=== PATIENT | female | born 1985 | race Caucasian/White ===

== ENCOUNTER 2016-09-13 10:07 | Observation (INO) | payer MEDICAID ==
[~2016-09-13] VITALS: Ht 160 cm; Wt 104.3 kg
[2016-09-13] MEDS ORDERED: PREN-88 PO (11:35)
[2016-09-13] MEDS ORDERED: LEVO125T PO (11:38)
== END 2016-09-13 12:20 | disposition home or self-care (01) ==
LOC: L&D 10:07
PROVIDERS: ADMIT Specialist; ATTEND Specialist
DX: O36.8130 Decreased fetal movements, third trimester, not applicable or unspecified (principal); Z3A.28 28 weeks gestation of pregnancy
CPT/HCPCS: 76815; 76818; 99281; G0378

== ENCOUNTER 2016-11-18 11:00 | Inpatient (IN) | payer MEDICAID ==
[~2016-11-18] VITALS: Ht 160 cm; Wt 106.1 kg
[~2016-11-18 11:00] MED LIST: LEVO125T PO; PREN-88 PO
[2016-11-18] MEDS ORDERED: LACTATED RINGERS 1,000 ML IV SCH (11:52)
[2016-11-18] MEDS ORDERED: CARBOPROST TROMETHAMINE 250 MCG/ML AMPUL IM PRN (12:00)
[2016-11-18] MEDS ORDERED: BUTORPHANOL TARTRATE 2 MG/ML VIAL IV PRN (12:00)
[2016-11-18] MEDS ORDERED: METHYLERGONOVINE MALEATE 0.2 MG/ML IM PRN (12:00)
[2016-11-18] MEDS ORDERED: NALOXONE HCL 0.4 MG/ML 1ML VIAL IM PRN (12:00)
[2016-11-18] MEDS ORDERED: LIDOCAINE HCL 1% 20ML VIAL (Pyxis) INJ INFIL SCH (12:00)
[2016-11-18 12:38] LABS: BASOPHILS % 0.1 % (0.0-2.0); EOSINOPHILS % 0.6 % (0.0-5.0); HEMOGLOBIN. 12.8 g/dL (12.0-16.0); LYMPHOCYTES % 15.7 % (20.0-50.0); MEAN CORPUSCULAR HEMOGLOBIN 31.5 pg (28.0-32.0); MEAN CORPUSCULAR VOLUME 91.1 fL (81.0-99.0); MEAN PLATELET VOLUME 9.5 fl (7.4-10.4); MONOCYTES % 4.9 % (2.0-8.0); NEUTROPHILS % 78.7 % (40.0-76.0); PLATELET 223 x1000/uL (130-400); RED BLOOD CELL COUNT 4.07 mill/uL (4.2-5.4); RED CELL DISTRIBUTION WIDTH 13.8 % (11.6-14.6)
[2016-11-18 12:45] LABS: CLARITY URINE CLOUDY (CLEAR); COLOR URINE YELLOW (YELLOW); GLUCOSE URINE NEGATIVE (NEGATIVE); KETONES URINE NEGATIVE (NEGATIVE); LEUKOCYTE ESTERASE URINE 1+ (NEGATIVE); NITRITE URINE NEGATIVE (NEGATIVE); OCCULT BLOOD URINE NEGATIVE (NEGATIVE); PH URINE 7.5 (4.5-8.0); PROTEIN URINE NEGATIVE (NEGATIVE); SPECIFIC GRAVITY URINE 1.007 (1.005-1.030); UROBILINOGEN URINE 0.2 E.U./dL (0.2-1.0)
[2016-11-18 12:50] LABS: INR 0.9; PARTIAL THROMBOPLASTIN TIME 26.5 sec (23.4-31.0); PROTHROMBIN TIME 9.4 sec (9.4-11.6)
[2016-11-18] MEDS: DEXT 5%/LR + PITOCIN 20UNITS/L 1,000 ML IV SCH (13:19)
[2016-11-18 13:21] LABS: *AMPHETAMINES SCREEN URINE NEGATIVE (NEGATIVE); *BARBITURATES SCREEN URINE NEGATIVE (NEGATIVE); *BENZODIAZEPINES SCREEN URINE NEGATIVE (NEGATIVE); *COCAINE SCREEN URINE NEGATIVE (NEGATIVE); CANNABINOID URINE SCREEN NEGATIVE (NEGATIVE); METHADONE URINE SCREEN NEGATIVE (NEGATIVE); OPIATES URINE SCREEN NEGATIVE (NEGATIVE); PHENCYCLIDINE URINE SCREEN NEGATIVE (NEGATIVE)
[2016-11-18 13:28] LABS: HEPATITIS B SURFACE ANTIGEN NEGATIVE
[2016-11-18 13:29] LABS: RUBELLA IGG > 500.0 IU/mL (4.99-10)
[2016-11-18] MEDS ORDERED: AMPICILLIN 2,000 MG in SODIUM CHLORIDE 0.9% 100 ML IV SCH (13:45)
[2016-11-18] MEDS: LACTATED RINGERS 1,000 ML IV SCH (18:31)
[2016-11-18] MEDS ORDERED: AMPICILLIN 1,000 MG in SODIUM CHLORIDE 0.9% 50 ML IV SCH (20:00)
[2016-11-18] MEDS ORDERED: FENTANYL CITRATE/PF 50MCG/ML 2ML VIAL ONE (21:50)
[2016-11-18] MEDS ORDERED: BUPIVACAINE HCL/PF 0.25% (2.5MG/ML) 10ML ONE (21:51)
[2016-11-18] MEDS ORDERED: BUPIVACAINE HCL/NS/PF EPIDURAL 100 ML EP ONE (21:51)
[2016-11-18] MEDS ORDERED: ONDANSETRON HCL 4MG/2ML VIAL IV PRN (22:30)
[2016-11-18] MEDS ORDERED: DIPHENHYDRAMINE 50MG/ML VIAL IM PRN (22:30)
[2016-11-18] MEDS ORDERED: BUPIVACAINE HCL/NS/PF EPIDURAL 100 ML EP SCH (22:30)
[2016-11-19] MEDS ORDERED: FENTANYL CITRATE/PF 50MCG/ML 2ML VIAL ONE ×3 (05:26→13:13)
[2016-11-19] MEDS ORDERED: BUPIVACAINE HCL/PF 0.25% (2.5MG/ML) 10ML ONE (05:27)
[2016-11-19] MEDS ORDERED: BUPIVACAINE HCL/NS/PF EPIDURAL 100 ML EP ONE (05:27)
[2016-11-19] MEDS: LACTATED RINGERS 1,000 ML IV SCH (06:04)
[2016-11-19] MEDS ORDERED: MORPHINE SULFATE/PF 1MG/ML 10ML AMP ONE (12:19)
[2016-11-19] MEDS ORDERED: MIDAZOLAM HCL 2 MG/2 ML VIAL ONE ×2 (12:20→13:14)
[2016-11-19] MEDS ORDERED: SODIUM CHLORIDE 0.9% 10ML VIAL ONE (12:26)
[2016-11-19] MEDS ORDERED: DEXAMETHASONE 4MG/ML 1ML VIAL ONE (12:26)
[2016-11-19] MEDS ORDERED: EPHEDRINE SULFATE 50MG/ML VIAL ONE (12:26)
[2016-11-19] MEDS ORDERED: CEFAZOLIN SODIUM 1000MG/VIAL ONE (12:26)
[2016-11-19] MEDS ORDERED: PHENYLEPHRINE HCL 10 MG/ML 1ML (IV VIAL) IV ONE (12:26)
[2016-11-19] MEDS ORDERED: ONDANSETRON HCL 4MG/2ML VIAL ONE (12:26)
[2016-11-19] MEDS ORDERED: OXYTOCIN 10 UNITS/ML 1ML ONE (12:26)
[2016-11-19] MEDS ORDERED: DEXT 5%/LR + PITOCIN 20UNITS/L 1,000 ML IV SCH (13:39)
[2016-11-19] MEDS ORDERED: ACETAMINOPHEN WITH CODEINE 300/30MG TABLET PO PRN (13:45)
[2016-11-19] MEDS ORDERED: IBUPROFEN 800MG TABLET PO PRN (13:45)
[2016-11-19] MEDS ORDERED: HYDROMORPHONE HCL/PF 2MG/ML CPJ IM PRN (13:45)
[2016-11-19] MEDS ORDERED: BISACODYL 10MG SUPP PR PRN (13:45)
[2016-11-19] MEDS ORDERED: RHO(D) IMMUNE GLOBULIN 300 MCG/SYR IM PRN (13:45)
[2016-11-19] MEDS ORDERED: IBUPROFEN 400MG TABLET PO PRN (13:45)
[2016-11-19] MEDS ORDERED: FENTANYL CITRATE/PF 50MCG/ML 2ML VIAL IV PRN (14:00)
[2016-11-19] MEDS: DEXT 5%/LR + PITOCIN 20UNITS/L 1,000 ML IV SCH (14:16)
[2016-11-19 15:45] VITALS: BP 132/80
[2016-11-19] MEDS: KETOROLAC 30MG/ML VIAL IV SCH ×2 (15:45→20:00)
[2016-11-19 16:15] VITALS: BP 136/82
[2016-11-19 16:45] VITALS: BP 127/71
[2016-11-19 20:15] VITALS: BP 129/72
[2016-11-20] VITALS: BP 116/68
[2016-11-20 04:00] VITALS: BP 122/71
[2016-11-20] MEDS: KETOROLAC 30MG/ML VIAL IV SCH (05:24)
[2016-11-20] MEDS: LACTATED RINGERS 1,000 ML IV SCH (06:10)
[2016-11-20] MEDS: LEVOTHYROXINE SODIUM 125MCG TABLET PO SCH (07:01)
[2016-11-20 07:40] VITALS: BP 113/73
[2016-11-20 07:49] LABS: BASOPHILS % 0.2 % (0.0-2.0); EOSINOPHILS % 0.1 % (0.0-5.0); HEMATOCRIT. 33.1 % (36.0-48.0); HEMOGLOBIN. 11.3 g/dL (12.0-16.0); LYMPHOCYTES % 14.7 % (20.0-50.0); MEAN CORPUSCULAR HEMOGLOBIN 31.8 pg (28.0-32.0); MEAN CORPUSCULAR VOLUME 92.7 fL (81.0-99.0); MEAN PLATELET VOLUME 9.6 fl (7.4-10.4); MONOCYTES % 6.9 % (2.0-8.0); NEUTROPHILS % 78.1 % (40.0-76.0); PLATELET 179 x1000/uL (130-400); RED BLOOD CELL COUNT 3.57 mill/uL (4.2-5.4); RED CELL DISTRIBUTION WIDTH 13.7 % (11.6-14.6)
[2016-11-20 12:15] VITALS: BP 121/77
[2016-11-20 15:40] VITALS: BP 123/72
[2016-11-20 20:50] VITALS: BP 119/61
[2016-11-21 00:45] VITALS: BP 117/72
[2016-11-21 04:00] VITALS: BP 118/76
[2016-11-21] MEDS: LEVOTHYROXINE SODIUM 125MCG TABLET PO SCH (07:21)
[2016-11-21 08:00] VITALS: BP 125/75
[2016-11-21] MEDS ORDERED: TETANUS, DIPHTHERIA, PERTUSSIS VAC/PF 0.5ML (>7YR OLD) IM ONE (10:00)
[2016-11-21 12:00] VITALS: BP 118/68
[2016-11-21 16:25] VITALS: BP 125/74
[2016-11-21 21:10] VITALS: BP 121/72
[2016-11-22 01:05] VITALS: BP 109/67
[2016-11-22 05:00] VITALS: BP 119/73
[2016-11-22] MEDS ORDERED: LEVOTHYROXINE SODIUM 125MCG TABLET PO SCH (07:00)
[2016-11-22 07:45] VITALS: BP 136/78
== END 2016-11-22 12:45 | disposition home or self-care (01) | DRG 540 ==
LOC: L&D 11:00 → OBSVTOIN 11:00 → 7EST PP/OB 11-19 15:45
PROVIDERS: ADMIT Obstetrics & Gynecology; ATTEND Obstetrics & Gynecology
PROC: 10D00Z1 Extraction of Products of Conception, Low, Open Approach (ICD-10-PCS; principal; 2016-11-19 13:00)
DX: O69.81X0 Labor and delivery complicated by cord around neck, without compression, not applicable or unspecified (principal); E03.9 Hypothyroidism, unspecified; O99.284 Endocrine, nutritional and metabolic diseases complicating childbirth; O62.2 Other uterine inertia; O32.8XX0 Maternal care for other malpresentation of fetus, not applicable or unspecified; Z37.0 Single live birth; Z3A.37 37 weeks gestation of pregnancy
CPT/HCPCS: 36415; 80305; 81001; 85025; 85610; 85730; 86592; 86703; 86762; 86850; 86900; 87070; 87075; 87205; 87340; 88307; 90715; 99281; A4216; G0378; J0171; J0290; J0595; J0690; J1100; J1885; J2250; J2274; J2370; J2405; J2590; J3010; J3490; J7050; J7120

== ENCOUNTER 2019-02-22 18:43 | Observation (INO) | payer MEDICAID ==
[~2019-02-22] VITALS: Ht 160 cm; Wt 105.7 kg
[2019-02-22] MEDS ORDERED: LACTATED RINGERS 1,000 ML IV ONE (20:00)
[2019-02-22 21:03] LABS: CLARITY URINE CLEAR (CLEAR); COLOR URINE YELLOW (YELLOW); KETONES URINE TRACE (NEGATIVE); LEUKOCYTE ESTERASE URINE NEGATIVE (NEGATIVE); NITRITE URINE NEGATIVE (NEGATIVE); OCCULT BLOOD URINE NEGATIVE (NEGATIVE); PROTEIN URINE NEGATIVE (NEGATIVE); SPECIFIC GRAVITY URINE 1.026 (1.005-1.030); UROBILINOGEN URINE 0.2 E.U./dL (0.2-1.0)
[2019-02-22 21:18] LABS: *AMPHETAMINES SCREEN URINE NEGATIVE (NEGATIVE); *BARBITURATES SCREEN URINE NEGATIVE (NEGATIVE); *BENZODIAZEPINES SCREEN URINE NEGATIVE (NEGATIVE); *COCAINE SCREEN URINE NEGATIVE (NEGATIVE); CANNABINOID URINE SCREEN NEGATIVE (NEGATIVE); METHADONE URINE SCREEN NEGATIVE (NEGATIVE); OPIATES URINE SCREEN NEGATIVE (NEGATIVE); PHENCYCLIDINE URINE SCREEN NEGATIVE (NEGATIVE)
== END 2019-02-22 22:45 | disposition home or self-care (01) ==
LOC: 8 EST LDRP 18:43
PROVIDERS: ADMIT Specialist; ATTEND Specialist
DX: O26.892 Other specified pregnancy related conditions, second trimester (principal); R10.30 Lower abdominal pain, unspecified; M54.9 Dorsalgia, unspecified; Z3A.22 22 weeks gestation of pregnancy
CPT/HCPCS: 80305; 81003; 99281; G0378; 96361; 96365

== ENCOUNTER 2019-06-22 20:26 | Inpatient (IN) | payer MEDICAID ==
[~2019-06-22] VITALS: Ht 160 cm; Wt 111.6 kg
[2019-06-22] MEDS ORDERED: FERR-71 PO (21:12)
[2019-06-22] MEDS ORDERED: PREN1TAB78 PO (21:12)
[2019-06-22] MEDS ORDERED: LEVO125T8 PO (21:12)
[2019-06-22] MEDS ORDERED: DEXT 5%/LR + PITOCIN 20UNITS/L 1,000 ML IV SCH (21:50)
[2019-06-22] MEDS ORDERED: LACTATED RINGERS 1,000 ML IV SCH (21:50)
[2019-06-22] MEDS ORDERED: METHYLERGONOVINE MALEATE 0.2 MG/ML IM PRN (22:00)
[2019-06-22] MEDS ORDERED: NALOXONE HCL 0.4 MG/ML 1ML VIAL IM PRN (22:00)
[2019-06-22 23:31] LABS: INR 0.9; PARTIAL THROMBOPLASTIN TIME 25.2 sec (23.4-31.0); PROTHROMBIN TIME 9.4 sec (9.6-11.0)
[2019-06-22 23:34] LABS: BASOPHILS % 0.1 % (0.0-2.0); EOSINOPHILS % 0.5 % (0.0-5.0); HEMOGLOBIN. 12.5 g/dL (12.0-16.0); LYMPHOCYTES % 25.4 % (20.0-50.0); MEAN CORPUSCULAR HEMOGLOBIN 32.1 pg (28.0-32.0); MEAN PLATELET VOLUME 9.4 fl (7.4-10.4); MONOCYTES % 5.6 % (2.0-8.0); NEUTROPHILS % 68.4 % (40.0-76.0); PLATELET 197 x1000/uL (130-400); RED BLOOD CELL COUNT 3.91 mill/uL (4.2-5.4); RED CELL DISTRIBUTION WIDTH 14.2 % (11.6-14.6)
[2019-06-22] MEDS ORDERED: FENTANYL CITRATE/PF 50MCG/ML 2ML VIAL ONE (23:42)
[2019-06-22] MEDS ORDERED: EPHEDRINE SULFATE 50MG/ML VIAL ONE (23:42)
[2019-06-22] MEDS ORDERED: PHENYLEPHRINE HCL 10 MG/ML 1ML (IV VIAL) IV ONE (23:42)
[2019-06-22] MEDS ORDERED: OXYTOCIN 10 UNITS/ML 1ML ONE (23:42)
[2019-06-22] MEDS ORDERED: MORPHINE SULFATE/PF 1MG/ML 10ML AMP ONE (23:42)
[2019-06-22] MEDS ORDERED: CITRIC ACID/SODIUM CITRATE SOLN 30ML UDC PO SCH (23:45)
[2019-06-22] MEDS ORDERED: CEFAZOLIN SODIUM 1000MG/VIAL ONE (23:47)
[2019-06-22] MEDS ORDERED: GLYCOPYRROLATE 0.2 MG/ML 2ML VIAL ONE (23:47)
[2019-06-22] MEDS ORDERED: ONDANSETRON HCL 4MG/2ML INJ ONE (23:47)
[2019-06-22 23:48] LABS: CLARITY URINE CLEAR (CLEAR); COLOR URINE YELLOW (YELLOW); KETONES URINE NEGATIVE (NEGATIVE); LEUKOCYTE ESTERASE URINE 2+ (NEGATIVE); NITRITE URINE NEGATIVE (NEGATIVE); OCCULT BLOOD URINE NEGATIVE (NEGATIVE); PH URINE 6.5 (4.5-8.0); PROTEIN URINE NEGATIVE (NEGATIVE); SPECIFIC GRAVITY URINE 1.016 (1.005-1.030)
[2019-06-22] MEDS ORDERED: SODIUM CHLORIDE 0.9% 10ML VIAL ONE (23:48)
[2019-06-23] VITALS (7 sets, daily range): BP systolic 97–131; BP diastolic 59–74
[2019-06-23 00:08] LABS: *AMPHETAMINES SCREEN URINE NEGATIVE (NEGATIVE); *BARBITURATES SCREEN URINE NEGATIVE (NEGATIVE); *BENZODIAZEPINES SCREEN URINE NEGATIVE (NEGATIVE); *COCAINE SCREEN URINE NEGATIVE (NEGATIVE); CANNABINOID URINE SCREEN NEGATIVE (NEGATIVE); METHADONE URINE SCREEN NEGATIVE (NEGATIVE); OPIATES URINE SCREEN NEGATIVE (NEGATIVE); PHENCYCLIDINE URINE SCREEN NEGATIVE (NEGATIVE)
[2019-06-23 00:17] LABS: HEPATITIS B SURFACE ANTIGEN NEGATIVE
[2019-06-23] MEDS ORDERED: ATROPINE SULFATE 1MG/10ML SYR ONE (00:30)
[2019-06-23] MEDS ORDERED: KETOROLAC 60MG/2ML VIAL IM ONE (00:40)
[2019-06-23] MEDS ORDERED: DIPHENHYDRAMINE 50MG/ML VIAL ONE (00:40)
[2019-06-23] MEDS ORDERED: RHO(D) IMMUNE GLOBULIN 300 MCG/SYR IM PRN (01:00)
[2019-06-23] MEDS ORDERED: KETOROLAC 30MG/ML VIAL IV PRN (01:00)
[2019-06-23] MEDS ORDERED: BISACODYL 10MG SUPP PR PRN (01:00)
[2019-06-23] MEDS ORDERED: IBUPROFEN 400MG TABLET PO PRN (01:00)
[2019-06-23] MEDS ORDERED: NALOXONE HCL 0.4 MG/ML 1ML VIAL IV PRN (03:30)
[2019-06-23] MEDS: KETOROLAC 30MG/ML VIAL IV SCH ×3 (03:30→14:18)
[2019-06-23] MEDS ORDERED: BUTORPHANOL TARTRATE 2 MG/ML VIAL IV PRN (03:30)
[2019-06-23] MEDS ORDERED: DIPHENHYDRAMINE 50MG/ML VIAL IV PRN (03:30)
[2019-06-23] MEDS: DEXT 5%/LR + PITOCIN 20UNITS/L 1,000 ML IV SCH ×2 (03:49→14:19)
[2019-06-23] MEDS: LEVOTHYROXINE SODIUM 125MCG TABLET PO SCH (07:00)
[2019-06-24 04:00] VITALS: BP 115/66
[2019-06-24] MEDS: LEVOTHYROXINE SODIUM 125MCG TABLET PO SCH (06:07)
[2019-06-24 07:23] LABS: BASOPHILS % 0.2 % (0.0-2.0); EOSINOPHILS % 0.9 % (0.0-5.0); HEMATOCRIT. 33.5 % (36.0-48.0); HEMOGLOBIN. 11.5 g/dL (12.0-16.0); LYMPHOCYTES % 16.2 % (20.0-50.0); MEAN CORPUSCULAR HEMOGLOBIN 31.9 pg (28.0-32.0); MEAN CORPUSCULAR VOLUME 92.7 fL (81.0-99.0); MONOCYTES % 5.1 % (2.0-8.0); NEUTROPHILS % 77.6 % (40.0-76.0); PLATELET 162 x1000/uL (130-400); RED BLOOD CELL COUNT 3.62 mill/uL (4.2-5.4); RED CELL DISTRIBUTION WIDTH 14.4 % (11.6-14.6)
[2019-06-24 07:48] VITALS: BP 99/52
[2019-06-24] MEDS: IBUPROFEN 800MG TABLET PO PRN ×2 (09:51→17:54)
[2019-06-24 16:01] VITALS: BP 109/55
[2019-06-24 19:30] VITALS: BP 102/69
[2019-06-25] VITALS: BP 100/70
[2019-06-25 04:00] VITALS: BP 138/69
[2019-06-25] MEDS: IBUPROFEN 800MG TABLET PO PRN (04:36)
[2019-06-25] MEDS: LEVOTHYROXINE SODIUM 125MCG TABLET PO SCH (06:06)
[2019-06-25 07:43] VITALS: BP 112/55
== END 2019-06-25 12:10 | disposition home or self-care (01) | DRG 540 ==
LOC: 8 EST LDRP 20:26 → OBSVTOIN 20:26 → 8EST 06-23 03:04 → 8 EST LDRP 06-23 03:10 → 8EST 06-23 03:39
PROVIDERS: ADMIT Obstetrics & Gynecology; ATTEND Obstetrics & Gynecology
PROC: 10D00Z1 Extraction of Products of Conception, Low, Open Approach (ICD-10-PCS; principal; 2019-06-23)
DX: O34.211 Maternal care for low transverse scar from previous cesarean delivery (principal); E66.01 Morbid (severe) obesity due to excess calories; E03.9 Hypothyroidism, unspecified; O99.284 Endocrine, nutritional and metabolic diseases complicating childbirth; O36.63X0 Maternal care for excessive fetal growth, third trimester, not applicable or unspecified; O99.214 Obesity complicating childbirth; O69.81X0 Labor and delivery complicated by cord around neck, without compression, not applicable or unspecified; O77.0 Labor and delivery complicated by meconium in amniotic fluid; Z37.0 Single live birth; Z3A.39 39 weeks gestation of pregnancy; Z79.890 Hormone replacement therapy
CPT/HCPCS: 36415; 80305; 81003; 85025; 86592; 86703; 86762; 86850; 86900; 87340; 88307; J0461; J0690; J1200; J1885; J2274; J2370; J2405; J2590; J3010; J3490